=== PATIENT | female | born 1980 | race Caucasian/White ===

== ENCOUNTER 2020-10-15 08:31 | Inpatient (IN) | payer MEDICAID ==
[~2020-10-15 08:31] MED LIST: Ketamine 50 MG in Sodium Chloride 0.9% 49.5 ML IV SCH; Ketamine 500 MG/5 ML MDV IV SCH; MAGNESIUM SULFATE IV SCH; SODIUM CHLORIDE 0.9% IV SCH; cefOXitin 2 GM Vial ONE
[2020-10-15] MEDS ORDERED: Scopolamine 1.5 MG Transdermal Patch TOP SCH (09:15)
[2020-10-15] MEDS ORDERED: Acetaminophen 500 MG Tab PO ONE (09:15)
[2020-10-15 09:29] LABS: HEMOGLOBIN A1C 6.5 % (4.5-6.2)
[2020-10-15] MEDS ORDERED: Dextrose 5%-Lactated Ringers 1,000 ML IV SCH (10:15)
[2020-10-15] MEDS ORDERED: fentaNYL 250 MCG/5 ML SDV ONE ×2 (10:15→13:36)
[2020-10-15] MEDS ORDERED: Glycopyrrolate 0.2 MG/ML 5 ML MDV ONE (10:16)
[2020-10-15] MEDS ORDERED: Rocuronium 50 MG/5 ML Vial ONE (10:16)
[2020-10-15] MEDS ORDERED: Propofol 200 MG/20 ML SDV ONE (10:16)
[2020-10-15] MEDS ORDERED: Dexamethasone 4 MG/ML SDV ONE (10:16)
[2020-10-15] MEDS ORDERED: Succinylcholine 200 MG/10 ML MDV ONE (10:16)
[2020-10-15] MEDS ORDERED: Ondansetron 4 MG/2 ML SDV ONE (10:16)
[2020-10-15] MEDS ORDERED: Neostigmine Methylsulfate 1 MG/ML 5 ML Syringe ONE (10:16)
[2020-10-15] MEDS ORDERED: Lactated Ringers 1,000 ML ONE (10:43)
[2020-10-15] MEDS: cefOXitin 2 GM in Sodium Chloride 0.9% 50 ML IV ONE ×2 (11:46→17:43)
[2020-10-15] MEDS ORDERED: Meropenem 500 MG SDV ONE (13:49)
[2020-10-15] MEDS ORDERED: Celecoxib 200 MG Cap PO ONE (14:31)
[2020-10-15] MEDS ORDERED: Sugammadex Sodium 200 MG/2 ML VIAL ONE (14:56)
[2020-10-15] MEDS ORDERED: Naloxone 0.4 MG/ML SDV ONE (14:56)
[2020-10-15] MEDS ORDERED: Cyclobenzaprine 10 MG Tab PO PRN (15:14)
[2020-10-15] MEDS ORDERED: Albuterol/Ipratropium 3.0-0.5 MG/3 ML Neb Soln INH PRN (15:15)
[2020-10-15] MEDS ORDERED: Metoclopramide 10 MG/2 ML SDV IVPUSH PRN (16:00)
[2020-10-15] MEDS ORDERED: Ondansetron 4 MG/2 ML SDV IVPUSH PRN (16:00)
[2020-10-15] MEDS ORDERED: traMADol 50 MG Tab PO PRN (16:00)
[2020-10-15] MEDS ORDERED: Calcium Gluconate 10% 1 GM/10 ML SDV IVPUSH PRN (16:00)
[2020-10-15] MEDS ORDERED: Labetalol 20 MG/4 ML Syringe IVPUSH PRN (16:00)
[2020-10-15] MEDS ORDERED: HYDROmorphone 0.5 MG/0.5 ML Syringe IVPUSH PRN (16:00)
[2020-10-15] MEDS ORDERED: diphenhydrAMINE 50 MG/ML SDV IVPUSH PRN (16:00)
[2020-10-15] MEDS ORDERED: Acetaminophen 500 MG Tab PO PRN (16:00)
[2020-10-15] MEDS ORDERED: hydrOXYzine HCL 100 MG/2 ML SDV IM PRN (16:00)
[2020-10-15] MEDS ORDERED: HYDROmorphone 1 MG/ML Syringe IV PRN (16:00)
[2020-10-15] MEDS ORDERED: MVI, Adult with Vitamin K 10 ML, Thiamine 200 MG, Zinc/Copper/Manganese/Selenium 1 ML i... IV SCH ×4 (16:00)
[2020-10-15] MEDS ORDERED: oxyCODONE 5 MG Tab PO PRN (16:00)
[2020-10-15] MEDS: Pantoprazole 40 MG Vial IVPUSH SCH (17:30)
[2020-10-15] MEDS: Acetaminophen 500 MG Tab PO SCH ×2 (17:32→23:58)
[2020-10-15] MEDS: Heparin Sodium 5,000 Units/ML Vial SUBCUT SCH (17:53)
[2020-10-15] MEDS: cefOXitin 2 GM in Sodium Chloride 0.9% 50 ML IV SCH ×2 (17:54→23:19)
[2020-10-15] MEDS ORDERED: Acetaminophen 500 MG Tab PO SCH (22:00)
[2020-10-15] MEDS: Dextrose 5%-Lactated Ringers 1,000 ML IV SCH (23:23)
[2020-10-16] MEDS: Heparin Sodium 5,000 Units/ML Vial SUBCUT SCH ×3 (03:20→17:41)
[2020-10-16] MEDS ORDERED: Iopamidol 612 MG/ML 50 ML SDV PO STA (03:44)
[2020-10-16] MEDS: Dextrose 5%-Lactated Ringers 1,000 ML IV SCH (05:15)
[2020-10-16] MEDS: cefOXitin 2 GM in Sodium Chloride 0.9% 50 ML IV SCH ×4 (05:29→23:15)
[2020-10-16] MEDS ORDERED: Lactated Ringers 1,000 ML IV SCH (08:00)
[2020-10-16] MEDS: Acetaminophen 500 MG Tab PO SCH ×3 (09:53→23:15)
[2020-10-16] MEDS: Furosemide 40 MG Tab PO SCH ×2 (09:53→13:00)
[2020-10-16] MEDS: Celecoxib 200 MG Cap PO SCH ×2 (09:53→20:04)
[2020-10-16] MEDS: SCOPOLAMINE PATCH CHECK TOP SCH (10:02)
[2020-10-16] MEDS ORDERED: Warfarin 5 MG Tab PO ONE (11:00)
[2020-10-16] MEDS: Ketoconazole 2% Crm 30 GM Tube TOP SCH ×2 (12:43→20:05)
[2020-10-16] MEDS: Pantoprazole 40 MG Vial IVPUSH SCH (15:09)
[2020-10-16] MEDS ORDERED: MVI, Adult with Vitamin K 10 ML, Thiamine 200 MG, Zinc/Copper/Manganese/Selenium 1 ML i... IV SCH ×4 (16:00)
[2020-10-17] MEDS: Heparin Sodium 5,000 Units/ML Vial SUBCUT SCH (03:11)
[2020-10-17] MEDS: Acetaminophen 500 MG Tab PO SCH ×3 (08:27→23:01)
[2020-10-17] MEDS: Celecoxib 200 MG Cap PO SCH ×2 (08:27→20:17)
[2020-10-17] MEDS: Furosemide 40 MG Tab PO SCH ×2 (08:28→13:27)
[2020-10-17] MEDS ORDERED: Cyanocobalamin (Vitamin B12) 1,000 MCG/ML SDV IM ONE (09:00)
[2020-10-17] MEDS: SCOPOLAMINE PATCH CHECK TOP SCH (10:44)
[2020-10-17] MEDS: Ketoconazole 2% Crm 30 GM Tube TOP SCH ×2 (10:44→20:17)
[2020-10-17] MEDS: Enoxaparin 60 MG/0.6 ML Syringe SUBCUT SCH ×2 (10:45→22:35)
[2020-10-17] MEDS ORDERED: Warfarin 5 MG Tab PO ONE (13:00)
[2020-10-18] MEDS: Acetaminophen 500 MG Tab PO SCH (07:50)
[2020-10-18] MEDS: Furosemide 40 MG Tab PO SCH (07:50)
[2020-10-18] MEDS: Ketoconazole 2% Crm 30 GM Tube TOP SCH (09:14)
[2020-10-18] MEDS: Celecoxib 200 MG Cap PO SCH (09:15)
[2020-10-18] MEDS ORDERED: Warfarin 2.5 MG Tab PO ONE (10:00)
[2020-10-18] MEDS ORDERED: Enoxaparin 120 MG/0.8 ML Syringe SUBCUT ONE (10:00)
--- NOTE | 2020-10-18 13:19 | PN ---
DATE OF SERVICE: 10/16/2020 The patient is postop day 1 from laparoscopic Allegra-en-Y gastric bypass along with diaphragmatic hernia repair and small bowel resection. Clinically, she has been quite sleepy overnight, but has been able to get up and void on 3 occasions. She has not had the upper GI x-ray as we will need to hold off on any narcotics or Vistaril. At this point, we will let her wake up a little bit more, then maximize activity, and work with pulmonary toilet aggressively over the next 24 hours. Otherwise, prothrombin time this morning 1.63. Chemistries otherwise look okay, as does the CBC. We will give her 5 mg of Coumadin today and continue the heparin. Hector Stone MD /[id number]
--- NOTE | 2020-10-18 13:55 | DISCH ---
FINAL DIAGNOSES: 1. Morbid obesity. 2. Marked hepatomegaly. 3. Paraesophageal diaphragmatic hernia associated with mediastinal lipoma. 4. Immobile small bowel mesentery requiring additional small bowel resection to allow minimal tension at gastrojejunostomy. ADDITIONAL DIAGNOSES: 1. History of pulmonary embolism with long-term anticoagulants. 2. Factor V Leiden status. 3. Obstructive sleep apnea with obesity hypoventilation syndrome. 4. Pulmonary hypertension. 5. Dependent edema. OPERATIVE PROCEDURES: Done on 10/15, diagnostic laparoscopy with: 1. Laparoscopic Allegra-en-Y gastric bypass with long limb gastroenterostomy. 2. Fidel-Cut needle liver biopsy. 3. Repair of paraesophageal diaphragmatic hernia. 4. Excision of mediastinal lipoma. 5. Small bowel resection to facilitate adequate mobility of the jejunojejunostomy. SUMMARY: This is a 40-year-old female presenting with a preoperative weight of 416 pounds and BMI of 67 for a Allegra-en-Y gastric bypass. This was done without incident on the date of admission. Because of her immobile fat laden small bowel mesentery, additional small bowel needed to be resected to allow an adequate tension-free anastomosis at the gastrojejunostomy. Postoperatively, the patient has been somewhat slow to hold adequate oxygenation. This did improve overnight and we found that having the oxygen in her mouth when she is sleeping does keep her saturations elevated, otherwise simply placing in her nose showed the O2 saturations as low as the upper 70s when sleeping. Otherwise, she is tolerating step-2 diet and requiring only Celebrex and Tylenol for pain. Medications at the time of discharge will include continuation of Lasix 40 mg b.i.d., Coumadin 5 mg daily, Mycostatin topical p.r.n., Celebrex 200 mg p.o. b.i.d. x5 days and p.r.n., aspirin 81 mg a day. She is instructed to use the nonenteric coated form for the first 2 weeks and otherwise she will be sent home with Lovenox 120 mg subcu q.a.m. starting tomorrow. She will get that same dose today in the hospital and Tylenol 1 g p.o. q.i.d. p.r.n. The patient will be instructed to check her pro-time with the [facility] in [place] this Sunday. She will be given enough Lovenox to get through the next 5 days, and if she is not therapeutic at that point some additional Lovenox can be obtained either from Dr. Del Cid or Surgery Department in [place]. We will have her go home on the 5 mg of Coumadin with presently this morning her INR only being 1.47. Long-term, she will likely require less in the way of Coumadin than preoperatively because of relatively scant amount of leaf and vegetables she will be taking in at least initially, so that pro-time will be watched fairly closely through the next several weeks. Otherwise, follow up with Kajal Corado at [facility] on 10/26/2020. We will check BMP, mag, phos, and pro-time at that appointment as well and she was instructed to stay on a step-2 liquid diet until the first appointment which will be again on 10/26/2020. /[id number]
--- NOTE | 2020-10-18 14:19 | PN ---
DATE OF SERVICE: 10/17/2020 The patient is noted to have stable vital signs. She did drop her oxygenation quite a bit when she is sleeping and will not keep her CPAP on more than a few minutes. She has maintained O2 saturations in the upper 80s to 90 on her mask when sleeping. At this point, she is clearly not quite ready to go home. Her INR today is 1.6. We will give Coumadin 5 mg p.o. still today and we will discontinue heparin and go to more of a standard Lovenox injection which she may end up going home with. Otherwise, if the oxygenation still remains problematic, we will obtain a consultation with Internal Medicine tomorrow regarding possible home oxygen use which apparently she does not have available at this time. She will receive 5 mg of Coumadin once again today and continue the step 2 diet and maximize activity and work with pulmonary toilet. Hector Stone MD /[id number]
--- NOTE | 2020-10-19 09:16 | CR ---
[facility] HISTORY: Postbariatric surgery FINDINGS: Patient swallowed water-soluble contrast. Upright views of the abdomen show no evidence of extravasation or obstruction. There is a surgical drain in the left upper quadrant IMPRESSION: Status post bariatric surgery No extravasation or obstruction seen
--- NOTE | 2020-10-25 10:40 | OR ---
DATE OF PROCEDURE: 10/15/2020 SURGEON: Hector Stnoe MD PREOPERATIVE DIAGNOSIS: Morbid obesity. POSTOPERATIVE DIAGNOSES: 1. Morbid obesity. 2. Marked hepatomegaly. 3. Paraesophageal diaphragmatic hernia. 4. Mediastinal lipoma. 5. Immobile small bowel and small bowel mesentery secondary to excessive fatty infiltration, requiring small bowel resection to allow adequate formation of gastrojejunostomy. OPERATIVE PROCEDURE: Diagnostic laparoscopy with: 1. Laparoscopic Allegra-en-Y gastric bypass with long limb gastroenterostomy (57799). 2. Fidel-Cut needle liver biopsy (13754). 3. Repair of paraesophageal diaphragmatic hernia (52656). 4. Excision of mediastinal lipoma (53392). 5. Small bowel resection (92392). ANESTHESIA: General. INDICATIONS FOR PROCEDURE: This is a 40-year-old female presenting with longstanding morbid obesity and increasingly significant comorbidities. After preoperative evaluation and discussion, the patient wished to proceed with a gastric bypass procedure. Potential risks of the procedure including bleeding, infection, leaks from various GI tract closures, problems with bowel obstruction time as well as possibility of cardiopulmonary, septic, or hemorrhagic complications leading to were discussed, and the patient wishes to proceed. DETAILS OF PROCEDURE: The patient was taken to the operative room and after general endotracheal anesthesia was induced, placed in a lithotomy position. The abdomen was then prepped and draped. 15 cm inferior and 5 cm left of xiphoid process, a transverse incision was made and the peritoneal cavity entered under direct vision with an Optiview trocar. The peritoneal cavity was inflated to 15 mmHg pressure with CO2 and the laparoscope reinserted. No underlying trocar insertion site injuries were seen. Bilateral transversus abdominis plane blocks were then placed, following which 5 additional trocars were placed across the upper and mid abdomen. There was noted to be quite grossly fatty infiltrated and Fidel-Cut needle biopsies were obtained from left lobe of the liver. Minimal bleeding from the biopsy sites was controlled with electrocautery. The omentum was then divided in the midline up to the level of the transverse colon. This allowed identification of the small bowel to the ligament of Treitz. Small bowel was then traced out 125 cm distal to that point. It was quite notable at this point that the small bowel was quite immobile due to extreme fat and latency within the small bowel mesentery, and to facilitate a more adequate tension-free gastrojejunostomy, at this point additional small bowel obstruction was undertaken with moving around 12 cm of the biliopancreatic limb side of the newly divided bowel. This was then re-stapled off with a ALEE stapler and that specimen was delivered from the field. This would allow significantly more mobility of the subsequently formed jejunojejunostomy. From that point, the small bowel was then traced out an additional 175 cm where the [id number] enteroenterostomy was accomplished with an internal firing of the Endo-ALEE 60 mm stapler. The common opening was then closed transversely with the same stapler, angles anastomosed, and mesenteric defect approximated with some 0 Ethibond stitch along with 4 mL of fibrin sealant. Divided end of the Allegra limb was then from the mesentery for a few centimeters which allowed antecolic position of the Allegra limb up to the level of the gastroesophageal junction without tension. The liver was then retracted anteriorly. The patient was noted to have a moderate type paraesophageal diaphragmatic hernia. This contained some perigastric fat and gastric fundus within it and this was reduced and the peritoneum overlying this was incised and reflected downward. During the course of dissection, mediastinal lipoma was encountered and this was excised and sent as a separate specimen. An anterior repair of the diaphragmatic hernia was then accomplished with 0 Ethibond sutures reinforced with PTFE pledgets. The anvil of a 25 mm EEA stapler was then attached to a Judsonia sump-type tube, brought down through the mouth allowing the anvil to be likewise pulled down to within the gastric pouch. The divided end of the Allegra limb was then opened and main body of EEA stapler was passed several centimeters into the lumen of the small bowel, brought up the anvil, and united with it, thus creating the gastrojejunostomy. Upon removal of the stapler, double donuts of mucosa were noted within it. The small bowel was closed off with a vascular staple line. Gastrojejunostomy was then reinforced with some 3-0 Vicryl seromuscular stitch along with 4 mL of fibrin sealant. Leak test was accomplished with injection of 120 mL of air in the gastric pouch while it was submerged with a cefoxitin-containing saline solution. No leaks were identified. A single Chapincito-Tolbert drain was then taken out through the left lateral trocar site and positioned adjacent to the gastrojejunostomy from there up into the splenic fossa. Trocars were then removed and the peritoneal cavity deflated, and incision was closed with 4-0 Vicryl skin stitch, which was also used to fix the drain and the patient was taken to the recovery room in satisfactory condition. There were no evident complications. Hector Stone MD /[id number]
== END 2020-10-18 11:28 | disposition home or self-care (01) | DRG 620 ==
LOC: JP.SDSSCHI 08:31 → JP.SDS 08:31 → EDSTATUS 10:15 → JP.2SS 14:45
PROVIDERS: ADMIT Surgery; ATTEND Surgery
PROC: 0FB24ZX Excision of Left Lobe Liver, Percutaneous Endoscopic Approach, Diagnostic (ICD-10-PCS; principal; 2020-10-15)
PROC: 0JB63ZZ Excision of Chest Subcutaneous Tissue and Fascia, Percutaneous Approach (ICD-10-PCS; principal; 2020-10-15)
PROC: 0D164ZA Bypass Stomach to Jejunum, Percutaneous Endoscopic Approach (ICD-10-PCS; principal; 2020-10-15)
PROC: 0BQT4ZZ Repair Diaphragm, Percutaneous Endoscopic Approach (ICD-10-PCS; principal; 2020-10-15)
PROC: 0DB84ZZ Excision of Small Intestine, Percutaneous Endoscopic Approach (ICD-10-PCS; principal; 2020-10-15)
DX: E66.01 Morbid (severe) obesity due to excess calories (principal); D68.51 Activated protein C resistance; R16.0 Hepatomegaly, not elsewhere classified; K44.9 Diaphragmatic hernia without obstruction or gangrene; Z86.711 Personal history of pulmonary embolism; G47.33 Obstructive sleep apnea (adult) (pediatric); I27.20 Pulmonary hypertension, unspecified; R60.0 Localized edema; D17.4 Benign lipomatous neoplasm of intrathoracic organs; Z68.44 Body mass index [BMI] 60.0-69.9, adult
CPT/HCPCS: 36415; 74240; 74240-26; 80053; 82947; 83036; 83735; 83880; 84100; 85025; 85027; 85610; 86850; 86900; 86901; 88304; 88307; 88313; 94667; 94668; 94762; A9270-GY; C9113; J0171; J0330; J0694; J1100; J1644; J1650; J2185; J2310; J2405; J2704; J2710; J2795; J3010; J3410; J3411; J3420; J3475; J3490; J7050; J7120; J7121; Q9967